=== PATIENT | male | born 1980 | race Asian ===

== ENCOUNTER 2016-10-05 22:48 | Emergency (ER) | payer OTHER ==
[~2016-10-05] VITALS: Ht 175.3 cm; Wt 88.7 kg
[~2016-10-05 22:48] MED LIST: NEXIUM40 MG PO; NOHOMEMEDS
[2016-10-05] MEDS ORDERED: INDOCIN50 MG PO (23:52)
[2016-10-06 00:06] VITALS: BP 140/94
== END 2016-10-06 00:17 | disposition home or self-care (01) ==
LOC: RME 22:48 → EME 22:48 → RME 10-06 00:17
DX: M23.92 Unspecified internal derangement of left knee (principal)
CPT/HCPCS: 73564; 99281; 99283